=== PATIENT | male | born 1950 | race Caucasian/White ===

== ENCOUNTER 2017-04-22 20:40 | Inpatient (IN) ==
--- NOTE | 2017-04-22 21:44 | Emergency Department Note ---
Disposition Clinical Impression: Petechiae Pneumonia Qualifiers: Pneumonia type: due to unspecified organism Laterality: right Lung location: lower lobe of lung Qualified Code(s): J18.1 - Lobar pneumonia, unspecified organism Altered mental state Qualifiers: Altered mental status type: unspecified Qualified Code(s): R41.82 - Altered mental status, unspecified Disposition: Admitted As Inpatient Condition: Fair Time of Disposition: 23:28 Chest Pain HPI - General Chief Complaint: ED Chest Pain Stated Complaint: chest pain, SoB, anxiety Time Seen by Provider: 04/22/17 20:48 Source: patient, EMS Limitations: no limitations Vital Signs Reviewed: Yes Nursing Notes Reviewed: Yes - History of Present Illness HPI Narrative: Mr Roberts is a 66 yo M transferred from [place] with unknown timeframe chest pain and SOB. Patient has a hx of schizophrenia and is a poor historian. Pt complaint: chest pain Onset (ago): unknown Duration: other (unable to illicit hx from patient) Onset: other (unable to illicit hx from patient) Pain Location: other (unable to illicit hx from patient) Severity: unable Severity scale (1-10): 7 Quality: other (unable to illicit hx from patient) Pain Radiation: other (unable to illicit hx from patient) Improves with: other (unable to illicit hx from patient) Worsens with: other (unable to illicit hx from patient) Context: other (unable to illicit hx from patient) Associated symptoms: Reports: dyspnea Treatments prior to arrival chest pain: other (unable to illicit hx from patient ) - Related Data Home Medications Medication Instructions Recorded Confirmed Acetaminophen [Tylenol] 650 mg PO Q6H PRN 04/22/17 04/22/17 Aspirin Enteric Coated [Aspirin EC] 162 mg PO DAILY 04/22/17 04/22/17 Bethanechol Chloride [Urecholine] 10 mg PO TID 04/22/17 04/22/17 Budesonide/Formoterol 160/4.5 2 puff IH BIDR 04/22/17 04/22/17 [Symbicort 160/4.5] Calcium Citrate 400 mg PO DAILY 04/22/17 04/22/17 Cholecalciferol (D-3) [Vitamin D] 3,000 unit PO DAILY 04/22/17 04/22/17 Cyanocobalamin (Vitamin B-12) 1,000 mcg PO BID 04/22/17 04/22/17 [Vitamin B12] Diltiazem HCl [Diltiazem 24Hr ER] 300 mg PO DAILY 04/22/17 04/22/17 Divalproex (24 HR) [Depakote ER 1,500 mg PO HS 04/22/17 04/22/17 (24 HR)] Docusate [Colace] 100 mg PO BID 04/22/17 04/22/17 Gabapentin [Neurontin] 100 mg PO QAM 04/22/17 04/22/17 Gabapentin [Neurontin] 300 mg PO 04/22/17 04/22/17 Haloperidol Decanoate [Haldol 200 mg IM Q2W 04/22/17 04/22/17 Decanoate 100] Ipratropium/Albuterol Neb [Duoneb] 3 ml IH Q4HR 04/22/17 04/22/17 Losartan Potassium [Cozaar] 100 mg PO DAILY 04/22/17 04/22/17 Magnesium Oxide [Mag-Ox] 400 mg PO TID 04/22/17 04/22/17 Phenol [Chloraseptic] 2 spray MM Q2H PRN 04/22/17 04/22/17 Polyvinyl Alcohol [Artificial 2 drop BOTH EYES TID 04/22/17 04/22/17 Tears] Propranolol [Inderal] 30 mg PO TID 04/22/17 04/22/17 Sennosides [Senna] 8.6 mg PO DAILY 04/22/17 04/22/17 Simethicone [Gas-X] 80 mg PO TIDAC 04/22/17 04/22/17 Spironolactone [Aldactone] 25 mg PO DAILY 04/22/17 04/22/17 Terazosin [Hytrin] 5 mg PO 04/22/17 04/22/17 Tramadol HCl [Ultram] 50 mg PO TID 04/22/17 04/22/17 Trazodone HCl 100 mg PO 04/22/17 04/22/17 Venlafaxine HCl [Effexor Xr] 225 mg PO QAM 04/22/17 04/22/17 cloNIDine HCl [CloNIDine HCl] 0.1 mg PO TID 04/22/17 04/22/17 metFORMIN [Glucophage] 500 mg PO BIDWM 04/22/17 04/22/17 risperiDONE [Risperidone] 4 mg PO BID 04/22/17 04/22/17 Previous Rx's Medication Instructions Recorded Levofloxacin 750 MG/150 ML 750 mg IVPB ONCE #1 bag 04/22/17 [Levaquin Premix 750mg/150 mL] MetroNIDAZOLE 500 MG/100 ML 500 mg IV ONCE #1 bag 04/22/17 [Flagyl Premix 500 MG/100 ML] Allergies Allergy/AdvReac Type Severity Reaction Status Date / Time fluphenazine Allergy See Verified 04/22/17 22:38 Comments piperacillin [From Zosyn] AdvReac See Verified 04/22/17 22:38 Comments tazobactam [From Zosyn] AdvReac See Verified 04/22/17 22:38 Comments All systems ED: reviewed and negative except as stated. Review of Systems: As Per HPI Chest Pain PMH - Past Medical History Medical history: Reports: atrial fibrillation, COPD, diabetes, hyperlipidemia, hypertension Psychiatric history: Reports: anxiety, depression, panic disorder, PTSD, schizophrenia - Social History Smoking Status: Former smoker Physical Exam - General Limitations: no limitations, altered mental status (according to transfer medics patient is at baseline) General appearance: alert, in no apparent distress - Head Head exam: atraumatic, normocephalic, normal inspection - Eye Eye exam: Present: normal appearance, PERRL, EOMI - ENT ENT exam: mucous membranes dry - Neck Neck exam: Present: normal inspection, full ROM, trachea midline - Chest Chest inspection: Present: normal inspection, symmetric chest wall rise - Respiratory Respiratory exam: Present: wheezes, prolonged expiratory phase - Cardiovascular Cardiovascular exam: Present: tachycardia - Extremities Exam Extremities exam: Present: other (petechiae on legs bilaterally) Course Course Narrative: CXR show large consolidation of right lobe. Due to patients living at [place], will start on zosyn and vancomycin, fluids and benadryl. Ordered U/A, and CT head. - Reevaluation(s) Reevaluation #1: CT head returned without acute processes. will discuss patient with hospitalist. Time: 23:09 Reevaluation #2: Patient was discussed with Dr. Marin, he will accept the patient. Vocera'd Dr. Marin letting him know that patient also has plt of 411 and has petechiae in lower extremities. Time: 23:24 Vital Signs Temperature 98.9 F 04/22/17 20:50 Pulse Rate 108 04/22/17 20:50 Respiratory Rate 18 04/22/17 20:50 Blood Pressure 143/104 04/22/17 20:50 O2 Sat by Pulse Oximetry 94 04/22/17 20:50 Temperature 97.6 F 04/23/17 06:57 Pulse Rate 101 04/23/17 06:57 Respiratory Rate 26 04/23/17 11:01 Blood Pressure 176/99 04/23/17 06:57 O2 Sat by Pulse Oximetry 98 04/23/17 11:01 Oxygen Delivery Oxygen Delivery Nasal Cannula Procedures - Lumbar Puncture Time Out Performed: Yes Patient Position: right lateral decubitus Skin Prep: Povidone-Iodine 1% Local Anesthetic: lidocaine 1%, with epi Spinal Needle Gauge: 22G Interspace Used: L4-L5 Fluid Initially Obtained: clear Complications: none Chest Pain - Lab Data Lab results reviewed: Yes I reviewed the patient's lab results. Result diagrams: 04/23/17 04:24 04/23/17 04:24 Lab Results 04/22/17 04/22/17 04/22/17 Range/Units 21:37 21:37 21:37 WBC 30.6 H* (4.3-11.1) K/mcL RBC 3.47 L (4.19-5.50) M/mcL Hgb 10.6 L (12.9-16.9) g/dL Hct 32.9 L (37.5-50.1) % MCV 94.8 (83.0-100.0) fL MCH 30.5 (28.0-33.3) pg MCHC 32.2 (31.6-35.5) g/dL RDW 13.9 (11.5-14.5) % Plt Count 411 H (140-400) K/mcL MPV 9.6 (9.4-12.4) fL Immature Gran % 0.6 (0-4) % Seg Neutrophils % 88.0 % Lymphocytes % 2.5 % Monocytes % 8.6 % Eosinophils % 0.1 % Basophils % 0.2 % Neutrophils # 26.9 H (1.6-8.9) K/mcL Lymphocytes # 0.8 (0.6-4.6) K/mcL Monocytes # 2.6 H (0.0-1.3) K/mcL Eosinophils # 0.0 (0.0-0.6) K/mcL Basophils # 0.1 (0.0-0.2) K/mcL Toxic Granulation Present A (Not Present) Platelet Estimate Increased H (Normal) PT 11.8 (9.4-12.1) Seconds INR 1.1 APTT 28.6 (26.0-36.0) Seconds VBG pH (7.32-7.42) pH Units VBG pCO2 (41-51) mmHg VBG pO2 (25-50) mmHg VBG HCO3 (21-27) mEq/L Sodium 129 L (136-145) mEq/L Potassium 4.7 (3.5-5.1) mEq/L Chloride 93 L (98-107) mEq/L Carbon Dioxide 25 (23-29) mEq/L BUN 28 H (8-23) mg/dL Creatinine 1.04 (0.70-1.30) mg/dL Est GFR ( Amer) > 60 (> 60) Est GFR (Non-Af Amer) > 60 (> 60) BUN/Creatinine Ratio 27 H (6-26) Glucose 171 H (70-105) mg/dL Calculated Osmolality 278 L (280-300) Calcium 9.8 (8.6-10.3) mg/dL Ammonia (16-53) mcmol/L Troponin I 0.03 (< 0.04) ng/mL Urine Color (Yellow) Urine Clarity (Clear) Urine pH (5.0-8.0) pH Units Ur Specific [place] (1.010-1.025) Urine Protein (Neg-Trace) mg/dL Urine Glucose (UA) (Normal) mg/dL Urine Ketones (Negative) mg/dL Urine Blood (Negative) Urine Nitrite (Negative) Urine Bilirubin (Negative) Urine Urobilinogen (Normal) mg/dL Ur Leukocyte Esterase (Negative) Urine Microscopic RBC (0-3) per hpf Urine Microscopic WBC (0-3) per hpf Ur Squamous Epith Cells (None-Few) per lpf Urine Bacteria (None-Few) per hpf Hyaline Casts (None-Few) per lpf Ur Culture Indicated? (NO) Valproic Acid (50-100) mcg/mL 04/22/17 04/22/17 04/22/17 Range/Units 22:11 22:11 22:18 WBC (4.3-11.1) K/mcL RBC (4.19-5.50) M/mcL Hgb (12.9-16.9) g/dL Hct (37.5-50.1) % MCV (83.0-100.0) fL MCH (28.0-33.3) pg MCHC (31.6-35.5) g/dL RDW (11.5-14.5) % Plt Count (140-400) K/mcL MPV (9.4-12.4) fL Immature Gran % (0-4) % Seg Neutrophils % % Lymphocytes % % Monocytes % % Eosinophils % % Basophils % % Neutrophils # (1.6-8.9) K/mcL Lymphocytes # (0.6-4.6) K/mcL Monocytes # (0.0-1.3) K/mcL Eosinophils # (0.0-0.6) K/mcL Basophils # (0.0-0.2) K/mcL Toxic Granulation (Not Present) Platelet Estimate (Normal) PT (9.4-12.1) Seconds INR APTT (26.0-36.0) Seconds VBG pH (7.32-7.42) pH Units VBG pCO2 (41-51) mmHg VBG pO2 (25-50) mmHg VBG HCO3 (21-27) mEq/L Sodium (136-145) mEq/L Potassium (3.5-5.1) mEq/L Chloride (98-107) mEq/L Carbon Dioxide (23-29) mEq/L BUN (8-23) mg/dL Creatinine (0.70-1.30) mg/dL Est GFR ( Amer) (> 60) Est GFR (Non-Af Amer) (> 60) BUN/Creatinine Ratio (6-26) Glucose (70-105) mg/dL Calculated Osmolality (280-300) Calcium (8.6-10.3) mg/dL Ammonia 35 (16-53) mcmol/L Troponin I (< 0.04) ng/mL Urine Color Yellow (Yellow) Urine Clarity Clear (Clear) Urine pH 7.5 (5.0-8.0) pH Units Ur Specific [place] 1.022 (1.010-1.025) Urine Protein 30 H (Neg-Trace) mg/dL Urine Glucose (UA) Normal (Normal) mg/dL Urine Ketones Trace H (Negative) mg/dL Urine Blood Negative (Negative) Urine Nitrite Negative (Negative) Urine Bilirubin Negative (Negative) Urine Urobilinogen Normal (Normal) mg/dL Ur Leukocyte Esterase Negative (Negative) Urine Microscopic RBC 0-3 (0-3) per hpf Urine Microscopic WBC 0-3 (0-3) per hpf Ur Squamous Epith Cells Moderate H (None-Few) per lpf Urine Bacteria None Seen (None-Few) per hpf Hyaline Casts None Seen (None-Few) per lpf Ur Culture Indicated? NO (NO) Valproic Acid 62 (50-100) mcg/mL 04/22/17 Range/Units 22:29 WBC (4.3-11.1) K/mcL RBC (4.19-5.50) M/mcL Hgb (12.9-16.9) g/dL Hct (37.5-50.1) % MCV (83.0-100.0) fL MCH (28.0-33.3) pg MCHC (31.6-35.5) g/dL RDW (11.5-14.5) % Plt Count (140-400) K/mcL MPV (9.4-12.4) fL Immature Gran % (0-4) % Seg Neutrophils % % Lymphocytes % % Monocytes % % Eosinophils % % Basophils % % Neutrophils # (1.6-8.9) K/mcL Lymphocytes # (0.6-4.6) K/mcL Monocytes # (0.0-1.3) K/mcL Eosinophils # (0.0-0.6) K/mcL Basophils # (0.0-0.2) K/mcL Toxic Granulation (Not Present) Platelet Estimate (Normal) PT (9.4-12.1) Seconds INR APTT (26.0-36.0) Seconds VBG pH 7.38 (7.32-7.42) pH Units VBG pCO2 44 (41-51) mmHg VBG pO2 44 (25-50) mmHg VBG HCO3 26 (21-27) mEq/L Sodium (136-145) mEq/L Potassium (3.5-5.1) mEq/L Chloride (98-107) mEq/L Carbon Dioxide (23-29) mEq/L BUN (8-23) mg/dL Creatinine (0.70-1.30) mg/dL Est GFR ( Amer) (> 60) Est GFR (Non-Af Amer) (> 60) BUN/Creatinine Ratio (6-26) Glucose (70-105) mg/dL Calculated Osmolality (280-300) Calcium (8.6-10.3) mg/dL Ammonia (16-53) mcmol/L Troponin I (< 0.04) ng/mL Urine Color (Yellow) Urine Clarity (Clear) Urine pH (5.0-8.0) pH Units Ur Specific [place] (1.010-1.025) Urine Protein (Neg-Trace) mg/dL Urine Glucose (UA) (Normal) mg/dL Urine Ketones (Negative) mg/dL Urine Blood (Negative) Urine Nitrite (Negative) Urine Bilirubin (Negative) Urine Urobilinogen (Normal) mg/dL Ur Leukocyte Esterase (Negative) Urine Microscopic RBC (0-3) per hpf Urine Microscopic WBC (0-3) per hpf Ur Squamous Epith Cells (None-Few) per lpf Urine Bacteria (None-Few) per hpf Hyaline Casts (None-Few) per lpf Ur Culture Indicated? (NO) Valproic Acid (50-100) mcg/mL - Radiology Data Radiology results reviewed: Yes I reviewed the patient's radiology results. Chest X-Ray 04/22/17 21:04 IMPRESSION: 1. Consolidative changes throughout the right lower lobe most compatible with pneumonia. Recommend follow-up to resolution. D/ / Kermit Ba MD / Kermit Ba MD Interpreting Provider: Kermit Ba MD Head CT 04/22/17 21:48 IMPRESSION: Small vessel chronic ischemic changes without acute hemorrhage or definite evidence for acute ischemia. D/ / Anthony Galvan MD / Anthony Galvan MD Interpreting Provider: Anthony Galvan MD - EKG Data EKG attestation: Yes I reviewed and interpreted this EKG. EKG shows normal: sinus rhythm Rate: tachycardia Rhythm: NSR [place]/QRS: normal When compared to previous EKG there are: previous EKG unavailable Interpretation: normal EKG, other (pattern consistent with pulmonary disease) Heart Score - Score History: Slightly Suspicious EKG: Normal Age: 45-65 Risk Factors: Equal/Greater than 3 risk factor or history of atherosclerotic disease Troponin: Less than normal limit HEART Score Total: 3 Attestation Statement - Attestation Attestation: I examined this patient and my medical decision-making was reviewed with the Resident Physician. I agree with the documented findings, disposition and treatment plan as described except to the extent set forth below. 66-year-old male sent to the emergency room from the [facility] due to altered mental status. He was residing in the inpatient psychiatric [place] when he developed a petechial rash, altered mental status and complaint of chest pain. One report also indicated that he had fever but this is not documented. Uncertain as to any recent medication changes. Patient is unable to provide accurate history or history of present illness. No known trauma. Patient is agitated and moving about the bed. Does not follow commands. Unable to consistently answer questions. Afebrile. Mild tachycardia. Oropharynx clear mucous membranes membranes are very dry. Neck is supple. Chest with diminished breath sounds both bases. No wheezes or focal consolidation appreciated. Cardiac exam tachycardic, regular. Abdomen soft, nondistended nontender. Extremities warm and dry. He does have a petechial rash on both legs and a few petechiae on the anterior abdomen. No CVA tenderness. IV was started and labs were obtained along blood cultures. Chest x-ray reveals a right lower lobe infiltrate. He has significant leukocytosis with white count of 30,000 with toxic granulations. Due to his presenting or mental status and not knowing his baseline as well as the petechial rash she underwent lumbar puncture to rule out meningitis. Primarily the CSF appeared clear. He was still given broad-spectrum antibiotics in the form of vancomycin, Flagyl and Levaquin. He is admitted to hospitalist service. The high probability of a clinically significant, sudden or life threatening deterioration of the [DESIGN SUPERVISOR, renovascular, pulmonary] system(s) required my full and direct attention, intervention and personal management. The aggregate critical care time was [40] minutes. This time is in addition to time spent performing reported procedures but includes the following: [x] Data Review and interpretation [x] Patient assessment and monitoring of vital signs [x] Documentation [x] Medication orders and management
[2017-04-22] MEDS ORDERED: Piperacillin/Tazobactam 3.375 GM in 0.9 % Sodium Chloride Mini Bag 100 ML IVPB ONE (21:50)
[2017-04-22] MEDS ORDERED: 0.9 % Sodium Chloride 1,000 ML IVC ONE (21:51)
[2017-04-22 22:02] LABS: Basophils # 0.1 K/mcL (0.0-0.2); Basophils % 0.2 %; Eosinophils % 0.1 %; Hematocrit 32.9 % (37.5-50.1); Hemoglobin 10.6 g/dL (12.9-16.9); INR 1.1; Immature Granulocytes % 0.6 % (0-4); Lymphocytes # 0.8 K/mcL (0.6-4.6); Lymphocytes % 2.5 %; Mean Corpuscular HGB Conc 32.2 g/dL (31.6-35.5); Mean Corpuscular Hemoglobin 30.5 pg (28.0-33.3); Mean Corpuscular Volume 94.8 fL (83.0-100.0); Mean Platelet Volume 9.6 fL (9.4-12.4); Monocytes # 2.6 K/mcL (0.0-1.3); Monocytes % 8.6 %; Neutrophils # 26.9 K/mcL (1.6-8.9); Platelet Count 411 K/mcL (140-400); Prothrombin Time 11.8 Seconds (9.4-12.1); Red Blood Count 3.47 M/mcL (4.19-5.50); Red Cell Distribution Width 13.9 % (11.5-14.5)
[2017-04-22 22:04] LABS: Activated Partial Thrombo Time 28.6 Seconds (26.0-36.0)
[2017-04-22] MEDS: *HR* LORazepam 2 MG/ML VIAL IVP ONE ×2 (22:10→22:17)
[2017-04-22 22:16] LABS: BUN/Creatinine Ratio 27 (6-26); Blood Urea Nitrogen 28 mg/dL (8-23); Calcium 9.8 mg/dL (8.6-10.3); Carbon Dioxide 25 mEq/L (23-29); Chloride 93 mEq/L (98-107); Glucose 171 mg/dL (70-105); Osmolality,Calculated 278 (280-300); Potassium 4.7 mEq/L (3.5-5.1); Sodium 129 mEq/L (136-145); Troponin I 0.03 ng/mL (< 0.04); eGFR For African Americans > 60 (> 60); eGFR For Non-African Americans > 60 (> 60)
[2017-04-22 22:17] LABS: Platelet Estimate Increased (Normal); Toxic Granulation Present (Not Present)
[2017-04-22 22:27] LABS: Bilirubin,Urine Negative (Negative); Blood,Urine Negative (Negative); Clarity,Urine Clear (Clear); Color,Urine Yellow (Yellow); Glucose,Urine (UA) Normal (Normal); Ketones,Urine Trace mg/dL (Negative); Leukocyte Esterase,Urine Negative (Negative); Nitrite,Urine Negative (Negative); PH,Urine 7.5 pH Units (5.0-8.0); Protein,Urine 30 mg/dL (Neg-Trace); Specific Gravity,Urine 1.022 (1.010-1.025); Urobilinogen,Urine Normal (Normal)
[2017-04-22 22:30] LABS: Bacteria,Urine None Seen per hpf (None-Few); Hyaline Casts,Urine None Seen per lpf (None-Few); RBC,Urine 0-3 per hpf (0-3); Squamous Epithelial Cell,Urine Moderate per lpf (None-Few); WBC,Urine 0-3 per hpf (0-3)
[2017-04-22 22:37] LABS: VBG HCO3 26 mEq/L (21-27); VBG PCO2 44 mmHg (41-51); VBG PH 7.38 pH Units (7.32-7.42); VBG PO2 44 mmHg (25-50)
[2017-04-22] MEDS ORDERED: MetroNIDAZOLE 500 MG/100 ML 500 MG/100 ML BAG IVPB ONE (22:42)
[2017-04-22] MEDS ORDERED: Levofloxacin 750 MG/150 ML 750 MG/150 ML BAG IVPB ONE (22:42)
[2017-04-22] MEDS ORDERED: *HR* LORazepam 2 MG/ML VIAL IVP ONE (23:35)
[2017-04-22] MEDS ORDERED: 0.9 % Sodium Chloride 1,000 ML ONE (23:44)
[2017-04-23] MEDS ORDERED: cefTRIAXone 2,000 MG in Water for inj. (sterile) 20 ML 20 ML IVP ONE (00:10)
[2017-04-23] MEDS: 0.9 % Sodium Chloride 1,000 ML IVC SCH ×3 (00:20→07:29)
[2017-04-23] MEDS ORDERED: Naloxone 0.4 MG/ML INJ IVP PRN (00:25)
[2017-04-23 00:28] LABS: Red Blood Cell,CSF < 0.002 M/mcL
[2017-04-23 00:29] LABS: Appearance,CSF Clear (Clear)
[2017-04-23] MEDS ORDERED: 0.9 % Sodium Chloride 1,000 ML IVC SCH (00:30)
[2017-04-23] MEDS ORDERED: Dextrose Gel 15 GM/37.5 ML TUBE PO PRN ×2 (00:32)
[2017-04-23] MEDS ORDERED: D5% in Water 1,000 ML IVC PRN (00:32)
[2017-04-23] MEDS ORDERED: *HR* Dextrose 50 % in Water (Syg) 50 ML SYRINGE IVP PRN (00:32)
[2017-04-23] MEDS ORDERED: Albuterol 2.5 MG/3 ML NEBULIZER IH PRN (00:38)
[2017-04-23 00:54] LABS: Glucose,CSF 90 mg/dL (40-70); Total Protein,CSF 27 mg/dL (15-45)
[2017-04-23] MEDS ORDERED: Vancomycin (wt based) 1,000 MG VIAL IVPB SCH (01:00)
--- NOTE | 2017-04-23 01:19 | Internal Med History&Physical ---
Date of Encounter: 04/23/17 Time of Encounter: 00:10 Assessment and Plan (1) Severe sepsis Current visit: Yes Status: Acute 1. Will continue IVF and broad spectrum IV antibiotics to cover meningitis and suspected aspiration pneumonia. 2. CSF studies to be reviewed once available. 3. Continue antibiotics until culture results are available and clinical situation improves. 4. Monitor hemodynamics and adjust medications/fluids accordingly. (2) Pneumonia Current visit: Yes Status: Acute 1. Likely the source for sepsis. 2. Given right lower lobe infiltrate and underlying metal state, there is concern this is aspiration. 3. Will add IVF Flagyl to antibiotics. 4. Oxygen and aerosols as needed. Qualifiers: Pneumonia type: due to unspecified organism Laterality: right Lung location: lower lobe of lung Qualified Code(s): J18.1 - Lobar pneumonia, unspecified organism (3) Encephalopathy acute Current visit: Yes Status: Acute 1. Unable to determine baseline mental status presently. 2. Will ask day team to discuss with family and/or [facility] nursing staff to provide details as to his baseline. 3. Monitor clinically; patient currently maintaining his airway. (4) Type 2 diabetes mellitus Current visit: Yes Status: Chronic 1. Will hold oral meds and place on SSI. 2. Monitor glucose and adjust insulin coverage as needed. Qualifiers: Diabetes mellitus complication status: without complication Diabetes mellitus senior living insulin use: without terminal operator use Qualified Code(s): E11.9 - Type 2 diabetes mellitus without complications (5) DVT prophylaxis Current visit: Yes Status: Acute 1. Heparin SQ. Internal Medicine - H&P: HPI Chief complaint: SOB; reported chest pain Admitted From: Emergency Dept Plans for Post Hospital Care: Transfer Psych Facility History of present illness: Mr. Roberts is a 66 year old male who was transferred to our ER from the [facility] inpatient psychiatry unit. Patient was noted to have an abnormal rash on his legs and reported difficulty breathing and chest pain. He was therefore transferred to the ER here [facility] where evaluation was initiated. Unfortunately, no medical records were transferred here from the [place] , and patient was not able to provide any history whatsoever. Routine labs and x-rays were performed which revealed patient to have a profound leukocytosis. Additionally, x-ray confirmed suspicion for pneumonia. Blood cultures were drawn and patient had antibiotics infused. He was then admitted to the hospitalist service. Additionally, we were then later notified that patient had significant petechial rash on his legs. I went to the ER to assess patient and examine him. As I walked in the ER, ther resident and attending were preparing to perform a lumbar puncture given his severe sepsis and petechial rash. Patient was nonverbal and did not provide any history whatsoever. ER attending and resident confirmed this was his presentation and that they were unable to provide any history whatsoever as well. No history could be obtained except what was obtained from third-green party reports via phone conversation the ER attending had with the inpatient unit at the [place]. I was present while they performed a lumbar puncture. The initial impression was the CSF was clear, but formal CSF analysis is pending. Past Med Surg Social Fam HX - Past Medical History Source: unable to obtain, other (very limited records form [place] -- essentially medication list) Medical history: atrial fibrillation, COPD, diabetes, hyperlipidemia, hypertension Psychiatric history: anxiety, depression, panic disorder, PTSD, schizophrenia - Past Surgical History Surgical History: other (unable to obtain surgical history) - Social History Smoking Status: Former smoker Alcohol use: unknown Drug use: unknown Current living situation: ECF - Family History Mother History Unknown: Yes Father History Unknown: Yes Internal Medicine - H&P: Meds Acetaminophen [Tylenol] 650 mg PO Q6H PRN 04/22/17 [History] Aspirin Enteric Coated [Aspirin EC] 162 mg PO DAILY 04/22/17 [History] Bethanechol Chloride [Urecholine] 10 mg PO TID 04/22/17 [History] Budesonide/Formoterol 160/4.5 [Symbicort 160/4.5] 2 puff IH BIDR 04/22/17 [ History] Calcium Citrate 400 mg PO DAILY 04/22/17 [History] Cholecalciferol (D-3) [Vitamin D] 3,000 unit PO DAILY 04/22/17 [History] Cyanocobalamin (Vitamin B-12) [Vitamin B12] 1,000 mcg PO BID 04/22/17 [History] Diltiazem HCl [Diltiazem 24Hr ER] 300 mg PO DAILY 04/22/17 [History] Divalproex (24 HR) [Depakote ER (24 HR)] 1,500 mg PO HS 04/22/17 [History] Docusate [Colace] 100 mg PO BID 04/22/17 [History] Gabapentin [Neurontin] 100 mg PO QAM 04/22/17 [History] Gabapentin [Neurontin] 300 mg PO HS 04/22/17 [History] Haloperidol Decanoate [Haldol Decanoate 100] 200 mg IM Q2W 04/22/17 [History] Ipratropium/Albuterol Neb [Duoneb] 3 ml IH Q4HR 04/22/17 [History] Levofloxacin 750 MG/150 ML [Levaquin Premix 750mg/150 mL] 750 mg IVPB ONCE #1 bag 04/22/17 [Rx] Losartan Potassium [Cozaar] 100 mg PO DAILY 04/22/17 [History] Magnesium Oxide [Mag-Ox] 400 mg PO TID 04/22/17 [History] MetroNIDAZOLE 500 MG/100 ML [Flagyl Premix 500 MG/100 ML] 500 mg IV ONCE #1 bag 04/22/17 [Rx] Phenol [Chloraseptic] 2 spray MM Q2H PRN 04/22/17 [History] Polyvinyl Alcohol [Artificial Tears] 2 drop BOTH EYES TID 04/22/17 [History] Propranolol [Inderal] 30 mg PO TID 04/22/17 [History] Sennosides [Senna] 8.6 mg PO DAILY 04/22/17 [History] Simethicone [Gas-X] 80 mg PO TIDAC 04/22/17 [History] Spironolactone [Aldactone] 25 mg PO DAILY 04/22/17 [History] Terazosin [Hytrin] 5 mg PO HS 04/22/17 [History] Tramadol HCl [Ultram] 50 mg PO TID 04/22/17 [History] Trazodone HCl 100 mg PO HS 04/22/17 [History] Venlafaxine HCl [Effexor Xr] 225 mg PO QAM 04/22/17 [History] cloNIDine HCl [CloNIDine HCl] 0.1 mg PO TID 04/22/17 [History] metFORMIN [Glucophage] 500 mg PO BIDWM 04/22/17 [History] risperiDONE [Risperidone] 4 mg PO BID 04/22/17 [History] 3 Allergy/AdvReac Type Severity Reaction Status Date / Time fluphenazine Allergy See Verified 04/22/17 22:38 Comments piperacillin [From Zosyn] AdvReac See Verified 04/22/17 22:38 Comments tazobactam [From Zosyn] AdvReac See Verified 04/22/17 22:38 Comments ROS unobtainable: due to mental status - Constitutional Vitals: Temp Pulse Resp BP Pulse Ox 99.7 F H 87 20 154/83 95 04/23/17 00:47 04/23/17 00:15 04/23/17 00:47 04/23/17 00:47 04/23/17 00:15 General appearance: Present: cachectic, A&O X 0, mild distress. Absent: cooperative - Head Head exam: Present: atraumatic, normal inspection - Eye Eye exam: Present: EOMI, PERRL. Absent: scleral icterus Pupils: Present: normal accommodation - ENT ENT exam: Present: mucous membranes dry, normal exam, normal external ear exam - Neck Neck exam general surgery: Present: full ROM, supple. Absent: lymphadenopathy, tenderness, nuchal rigidity, thyromegaly - Respiratory Respiratory exam: Present: decreased breath sounds (mostly in right base), rales (faint right basilar crackles), respiratory distress (mild). Absent: chest wall tenderness, rhonchi, wheezes - Cardiovascular Cardiovascular exam: Present: distant heart sounds, RRR, +S1, +S2. Absent: diastolic murmur, JVD, systolic murmur - GI/Abdominal GI/Abdominal exam: Present: normal bowel sounds, soft. Absent: hepatomegaly, mass, splenomegaly, tenderness - Extremities Exam Extremities exam: Present: normal capillary refill, warm, radial pulses palpable and symmetrical. Absent: calf tenderness, joint swelling, pedal edema , tenderness - Back Exam Back exam: Absent: CVA tenderness (L), CVA tenderness (R) - Neurological Exam Neurological exam: Present: altered, no focal deficits Additional comments: moves all four extremities - Psychiatric Psychiatric exam: Present: agitated - Skin Skin exam: Present: dry, petechiae (diffuse petechial rash on legs), warm Internal Med - H&P Results - Labs CBC & Chem 7: 04/22/17 21:37 04/22/17 21:37 - EKG Data -: EKG Interpreted by Myself EKG shows normal: sinus rhythm Rate: tachycardia - EKG Data Prior EKG available for review: no EKG comments: 04/23/17 01:24 Sinus tachycardia; no acute ST-T changes - Diagnostic Studies Chest x-ray Status: image reviewed by me (RLL infiltrate)
[2017-04-23] MEDS: Ipratropium/Albuterol Neb 3 ML IH SCH ×6 (04:21→23:35)
[2017-04-23 04:45] LABS: Hematocrit 29.8 % (37.5-50.1); Hemoglobin 9.5 g/dL (12.9-16.9); INR 1.2; Mean Corpuscular HGB Conc 31.9 g/dL (31.6-35.5); Mean Corpuscular Hemoglobin 30.3 pg (28.0-33.3); Mean Corpuscular Volume 94.9 fL (83.0-100.0); Mean Platelet Volume 9.6 fL (9.4-12.4); Platelet Count 346 K/mcL (140-400); Prothrombin Time 12.6 Seconds (9.4-12.1); Red Blood Count 3.14 M/mcL (4.19-5.50); Red Cell Distribution Width 13.9 % (11.5-14.5)
[2017-04-23 04:48] LABS: Activated Partial Thrombo Time 27.4 Seconds (26.0-36.0)
[2017-04-23 05:06] LABS: Alanine Aminotransferase 9 Units/L (7-52); Albumin 2.8 g/dL (3.5-5.7); Albumin/Globulin Ratio 0.9 (1.1-2.2); Alkaline Phosphatase 35 Units/L (34-104); Aspartate Amino Transferase 10 Units/L (13-39); BUN/Creatinine Ratio 23 (6-26); Bilirubin,Total 0.2 mg/dL (0.3-1.0); Blood Urea Nitrogen 20 mg/dL (8-23); Calcium 8.7 mg/dL (8.6-10.3); Carbon Dioxide 25 mEq/L (23-29); Chloride 102 mEq/L (98-107); Globulin 3.1 g/dL (2.4-3.5); Glucose 102 mg/dL (70-105); Magnesium 1.5 mg/dL (1.6-2.6); Osmolality,Calculated 279 (280-300); Potassium 4.9 mEq/L (3.5-5.1); Sodium 133 mEq/L (136-145); Total Protein 5.9 g/dL (6.4-8.9); eGFR For African Americans > 60 (> 60); eGFR For Non-African Americans > 60 (> 60)
[2017-04-23] MEDS ORDERED: Magnesium Sulfate 2 GM in D5% in Water 100 ML IVPB ONE (05:36)
[2017-04-23 05:49] LABS: Lymphocytes # 1.4 K/mcL (0.6-4.6); Monocytes # 0.5 K/mcL (0.0-1.3); Neutrophils # 21.6 K/mcL (1.6-8.9); Platelet Estimate Normal (Normal); Toxic Granulation Present (Not Present)
[2017-04-23] MEDS: *HR* Metoprolol 5 MG/5 ML VIAL IVP PRN (07:20)
[2017-04-23] MEDS: *HR* Heparin 5,000 UNIT/ML VIAL SQ SCH ×2 (07:29→18:00)
[2017-04-23] MEDS: Insulin LISPRO 300 UNITS/3 ML VIAL SQ SCH ×3 (07:30→17:59)
[2017-04-23] MEDS ORDERED: *HR* Metoprolol 5 MG/5 ML VIAL IVP ONE (07:44)
[2017-04-23] MEDS: MetroNIDAZOLE 500 MG/100 ML 500 MG/100 ML BAG IVPB SCH ×2 (07:53→16:08)
[2017-04-23 08:26] LABS: ABG Base Excess 0 mEq/L (-2 to 3); ABG HCO3 24 mEq/L (21-27); ABG Oxygen Saturation 95 % (95-98); ABG PCO2 36 mmHg (35-45); ABG PH 7.43 pH Units (7.32-7.45); ABG PO2 72 mmHg (85-104); ABG TCO2 25 mEq/L (20-26)
[2017-04-23] MEDS: Budesonide/Formoterol 160/4.5 MDI IH SCH ×2 (08:28→20:08)
[2017-04-23] MEDS ORDERED: cefTRIAXone 2,000 MG in Water for inj. (sterile) 20 ML 20 ML IVP SCH (12:00)
[2017-04-23] MEDS: Artificial Tears SOLN 15 ML BOTTLE BOTH EYES SCH ×3 (12:05→22:23)
[2017-04-23] MEDS: Gabapentin 100 MG CAPSULE PO SCH (12:05)
[2017-04-23] MEDS: Aspirin Enteric Coated 81 MG Tablet PO SCH (12:05)
[2017-04-23] MEDS: Diltiazem CD (24hr) 300 MG CAPSULE PO SCH (12:05)
[2017-04-23] MEDS: Magnesium Oxide 400 MG TABLET PO SCH ×3 (12:05→20:34)
[2017-04-23] MEDS: Sennosides 8.6 MG TABLET PO SCH (12:05)
[2017-04-23] MEDS: *HR* LORazepam 2 MG/ML VIAL IVP PRN ×2 (12:28→19:04)
--- NOTE | 2017-04-23 16:45 | Event Note ---
<Dany Siddiqui - Last Filed: 04/23/17 16:37> Date of Encounter: 04/23/17 Time of Encounter: 16:37 Patient is a 66-year-old male with a past medical history atrial fibrillation, COPD, diabetes, hyperlipidemia, hypertension, depression, panic disorder, PTSD, and schizophrenia admitted from the emergency department for pneumonia, altered mental status, and petechiae. According to documentation from patients chart he originally was sent to the emergency department from the [facility] for the complaint of shortness of breath and chest pain. In the emergency room and the patient had a leukocytosis of 30.6 with elevated neutrophils at 26.9. Coags were normal and BMP was unremarkable. Troponin and pneumonia were negative. Urine was negative and CSF fluid was negative VS: 97.6F, 101, 22, 22, 176/99, 92% 3LNC PE: Exam is limited due to patient movement. Patient appears to be in mild distress, hears my voice if its raised, states he uses hearing aids. Lung exam is limited due to tachypnea however rales appreciated in right lower lung. Heart rate is tachycardic. Diffuse petechial rash over lower extremities consistent with benign chronic vasculitis. No edema. Skin is pale and dry. Labs: CSF labs negative clear, <0.002 RBC, < 3 total nucleated cells, 90 glucose, 27 protein Urine negative Severe sepsis WBC improved from 30 to 23.5 Source most likely RLL aspiration pneumonia - CXR RLL pneumonia CSF and urine negative for signs of infection Received 4L NS total Plan: Stop fluids for now Continue Flagyl 500mg Q8H , vancomycin 1g Daily, stop Ceftriaxone 2mg Q12H. We will add cefepime for pseudomonas coverage Blood CSF cultures pending, meningitis unlikely Pneumonia LLL as seen on CXR, most likely aspiration Speech therapy ordered for swallow evaluation - aspiration not observed. Advanced soft textures and thin liquids are recommended Oxygen and aerosols PRN Plan: ABG normal Continue antibiotics as discussed above Tachycardia Metoprolol 5mg Q6H PRN HR >130 Most likely due to help home medications Plan: Discussed with pharmacy. Medications reconciled, will help with heart rate and agitation. Encephalopathy acute Friend of patient visited today and states patient is at baseline Lorazepam 0.5mg Q8H PRN for agitation Head CT in ED was negative Restarting home medications today Type 2 diabetes mellitus SSI Corrective Low Dose DVT prophylaxis Heparin SQ Q12H <Eric Delvalle - Last Filed: 04/23/17 18:47> Date of Encounter: 04/23/17
[2017-04-23] MEDS ORDERED: Cefepime HCl 2,000 MG in Water for inj. (sterile) 20 ML IVP SCH (18:00)
[2017-04-23] MEDS: risperiDONE 1 MG TABLET PO SCH (20:33)
[2017-04-23] MEDS: Gabapentin 300 MG CAPSULE PO SCH (20:34)
[2017-04-23] MEDS: cloNIDine HCl 0.1 MG TABLET PO SCH (20:34)
[2017-04-23] MEDS: traZODone 50 MG TABLET PO SCH (20:34)
[2017-04-23] MEDS: Divalproex (24 HR) 500 MG TABLET PO SCH (20:34)
[2017-04-23] MEDS: Acetaminophen 325 MG TABLET PO PRN (22:32)
[2017-04-24] MEDS: Insulin LISPRO 300 UNITS/3 ML VIAL SQ SCH ×3 (00:09→12:09)
[2017-04-24] MEDS: MetroNIDAZOLE 500 MG/100 ML 500 MG/100 ML BAG IVPB SCH ×4 (00:14→23:56)
[2017-04-24] MEDS: Cefepime HCl 2,000 MG in Water for inj. (sterile) 20 ML 20 ML IVP SCH ×3 (01:26→17:04)
[2017-04-24 01:51] LABS: Basophils % 0.2 %; Hematocrit 24.1 % (37.5-50.1); Immature Granulocytes % 0.6 % (0-4); Lymphocytes % 1.8 %; Mean Corpuscular Volume 92.3 fL (83.0-100.0); Mean Platelet Volume 9.7 fL (9.4-12.4); Red Blood Count 2.61 M/mcL (4.19-5.50); Red Cell Distribution Width 13.9 % (11.5-14.5)
[2017-04-24 01:52] LABS: Basophils # 0.1 K/mcL (0.0-0.2); Lymphocytes # 0.5 K/mcL (0.6-4.6); Mean Corpuscular HGB Conc 33.2 g/dL (31.6-35.5); Mean Corpuscular Hemoglobin 30.7 pg (28.0-33.3); Monocytes # 1.3 K/mcL (0.0-1.3); Monocytes % 5.1 %; Platelet Count 270 K/mcL (140-400); Segmented Neutrophils % 92.3 %
[2017-04-24 02:07] LABS: BUN/Creatinine Ratio 20 (6-26); Blood Urea Nitrogen 18 mg/dL (8-23); Carbon Dioxide 23 mEq/L (23-29); Chloride 102 mEq/L (98-107); Glucose 97 mg/dL (70-105); Magnesium 1.7 mg/dL (1.6-2.6); Osmolality,Calculated 276 (280-300); Sodium 132 mEq/L (136-145); eGFR For African Americans > 60 (> 60); eGFR For Non-African Americans > 60 (> 60)
[2017-04-24 03:31] LABS: Platelet Estimate Normal (Normal); Toxic Granulation Present (Not Present)
[2017-04-24] MEDS: Ipratropium/Albuterol Neb 3 ML IH SCH ×5 (03:36→20:31)
[2017-04-24] MEDS: *HR* Heparin 5,000 UNIT/ML VIAL SQ SCH ×2 (05:49→17:05)
[2017-04-24] MEDS: Budesonide/Formoterol 160/4.5 MDI IH SCH ×2 (07:37→20:32)
[2017-04-24] MEDS: Gabapentin 100 MG CAPSULE PO SCH (07:59)
[2017-04-24] MEDS: Venlafaxine XR (24 HR) 75 MG CAP.ER.24H PO SCH (08:00)
[2017-04-24] MEDS: Magnesium Oxide 400 MG TABLET PO SCH ×3 (08:00→21:44)
[2017-04-24] MEDS: cloNIDine HCl 0.1 MG TABLET PO SCH ×3 (08:00→21:44)
[2017-04-24] MEDS: Aspirin Enteric Coated 81 MG Tablet PO SCH (08:01)
[2017-04-24] MEDS: risperiDONE 1 MG TABLET PO SCH ×2 (08:01→21:44)
[2017-04-24] MEDS: Sennosides 8.6 MG TABLET PO SCH (08:01)
[2017-04-24] MEDS: Diltiazem CD (24hr) 300 MG CAPSULE PO SCH (08:01)
[2017-04-24] MEDS: Artificial Tears SOLN 15 ML BOTTLE BOTH EYES SCH ×3 (09:05→21:45)
[2017-04-24] MEDS: *HR* LORazepam 2 MG/ML VIAL IVP PRN (15:01)
[2017-04-24] MEDS ORDERED: Furosemide 40 MG/4 ML VIAL IVP ONE (15:04)
[2017-04-24 15:16] LABS: ABG Base Excess -2 mEq/L (-2 to 3); ABG HCO3 22 mEq/L (21-27); ABG Oxygen Saturation 94 % (95-98); ABG PCO2 30 mmHg (35-45); ABG PH 7.46 pH Units (7.32-7.45); ABG PO2 66 mmHg (85-104); ABG TCO2 23 mEq/L (20-26)
--- NOTE | 2017-04-24 16:22 | Electrocardiograph Report ---
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
--- NOTE | 2017-04-24 16:23 | Internal Med Progress Note ---
<Dany Siddiqui - Last Filed: 04/24/17 18:10> Date of Encounter: 04/24/17 Time of Encounter: 16:21 - Assessment and plan (1) Severe sepsis Current Visit: Yes Status: Acute Assessment and plan: Patient is currently on day 2 of Flagyl, vancomycin, and cefepime. Blood cultures, CSF cultures, an influenza swab are all negative. She is and aerosols when necessary. Patient is scheduled breathing treatments. WBC: 30. -> 23.5 -> 24.9 Plan: Repeat chest x-ray today shows worsening pneumonia versus pulmonary edema. Patient received 40 mg IV Lasix. Continue current antibiotic regimen. Continue to monitor white count. 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 He states that he has lost his glasses and hearing aids. I attempted to consult with [place] today and was unsuccessful. Plan: - Patient continues to have intermittent agitation has lorazepam 0.5 mg Q8H PRN for agitation (5) DVT prophylaxis Current Visit: Yes Status: Acute Assessment and plan: Heparin SQ Q12H - Subjective Interval history: Patient is a 66-year-old male with a past medical history atrial fibrillation, COPD, diabetes, hyperlipidemia, hypertension, depression, panic disorder, PTSD, and schizophrenia admitted from the emergency department for pneumonia, altered mental status, and petechiae. According to documentation from patients chart he originally was sent to the emergency department from the [facility] for the complaint of shortness of breath and chest pain. Today the patient's agitation is under control however this morning the patient was somnolent and has become more active throughout the day. He does appear to be having increased work of breathing and a repeat chest x-ray showed possible pulmonary edema versus worsening pneumonia. IV Lasix was ordered. - Constitutional Vitals: Temp Pulse Resp BP Pulse Ox 99.1 F 79 18 119/86 93 04/24/17 16:02 04/24/17 16:02 04/24/17 16:12 04/24/17 16:02 04/24/17 16:12 General appearance: Present: cachectic, A&O X 0, mild distress. Absent: cooperative Exam: Patient is somnolent this morning. He is reactive if I shout which is secondary to his hearing loss which is chronic. The patient is to Make any does have abdominal breathing. He is saturating in the 90s on 4 L. His vital signs are otherwise stable at this time. - Head Head exam: Present: atraumatic, normal inspection, normocephalic - Eye Eye exam: Present: normal appearance, PERRL - Neck Neck exam general surgery: Present: normal inspection - Respiratory Respiratory exam: Present: rales (Mostly in the right base with faint basilar crackles. Patient is mild to moderate respiratory distress.) - Cardiovascular Cardiovascular exam: Present: RRR, +S1, +S2 - GI/Abdominal GI/Abdominal exam: Present: soft, no peritoneal signs. Absent: tenderness - Extremities Exam Extremities exam: Present: normal inspection, warm. Absent: pedal edema, tenderness - Back Exam Back exam: Present: normal inspection - Neurological Exam Neurological exam: Present: alert, no focal deficits - Psychiatric Psychiatric exam: Present: normal affect, normal mood - Skin Skin exam: Present: intact, normal color, warm. Absent: rash Internal Medicine: Result - Labs CBC & Chem 7: 04/24/17 01:31 04/24/17 01:31 Labs: Short CBC 04/24/17 Range/Units 01:31 WBC 24.9 H (4.3-11.1) K/mcL Hgb 8.0 L D (12.9-16.9) g/dL Hct 24.1 L (37.5-50.1) % Plt Count 270 (140-400) K/mcL Neutrophils # 23.0 H (1.6-8.9) K/mcL BMP 04/24/17 01:31 Sodium 132 L Potassium 4.0 Chloride 102 Carbon Dioxide 23 BUN 18 Creatinine 0.92 Glucose 97 Calcium 8.0 L - ABG Interpretation ABG results: ABG ABG pH 7.46 pH Units (7.32-7.45) H 04/24/17 15:12 ABG pCO2 30 mmHg (35-45) L 04/24/17 15:12 ABG pO2 66 mmHg (85-104) L 04/24/17 15:12 ABG O2 Saturation 94 % (95-98) L 04/24/17 15:12 PT/INR, D-dimer PT 12.6 Seconds (9.4-12.1) H 04/23/17 04:24 - Impressions Impressions Chest X-Ray 04/24/17 13:13 IMPRESSION: Worsening airspace disease at the right lung base with new left basilar opacities. Findings could reflect worsening pneumonia, aspiration or possibly asymmetric edema. Increased retrocardiac opacities may reflect atelectasis although developing airspace disease is possible. D/ / Glen Mason / Glen Mason Interpreting Provider: Glen Mason Consult Discharge Plan - Plan [facility]errals: [facility] [Non-Partnered Physician] - 04/28/17 1:30 pm <Eric Delvalle - Last Filed: 04/24/17 18:52> Date of Encounter: 04/24/17 - Constitutional Vitals: Temp Pulse Resp BP Pulse Ox 99.1 F 79 18 119/86 93 04/24/17 16:02 04/24/17 16:02 04/24/17 16:12 04/24/17 16:02 04/24/17 16:12 Internal Medicine: Result - Labs CBC & Chem 7: 04/24/17 01:31 04/24/17 01:31 Labs: Short CBC 04/24/17 Range/Units 01:31 WBC 24.9 H (4.3-11.1) K/mcL Hgb 8.0 L D (12.9-16.9) g/dL Hct 24.1 L (37.5-50.1) % Plt Count 270 (140-400) K/mcL Neutrophils # 23.0 H (1.6-8.9) K/mcL BMP 04/24/17 01:31 Sodium 132 L Potassium 4.0 Chloride 102 Carbon Dioxide 23 BUN 18 Creatinine 0.92 Glucose 97 Calcium 8.0 L - ABG Interpretation ABG results: ABG ABG pH 7.46 pH Units (7.32-7.45) H 04/24/17 15:12 ABG pCO2 30 mmHg (35-45) L 04/24/17 15:12 ABG pO2 66 mmHg (85-104) L 04/24/17 15:12 ABG O2 Saturation 94 % (95-98) L 04/24/17 15:12 PT/INR, D-dimer PT 12.6 Seconds (9.4-12.1) H 04/23/17 04:24 - Impressions Impressions Chest X-Ray 04/24/17 13:13 IMPRESSION: Worsening airspace disease at the right lung base with new left basilar opacities. Findings could reflect worsening pneumonia, aspiration or possibly asymmetric edema. Increased retrocardiac opacities may reflect atelectasis although developing airspace disease is possible. D/ / Glen Mason / Glen Mason Interpreting Provider: Glen Mason - Attending Attestation I examined this patient and my medical decision-making was reviewed with the Resident Physician. I agree with the documented findings, disposition and treatment plan as described except to the extent set forth below.
--- NOTE | 2017-04-24 16:53 | Electrocardiograph Report ---
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
[2017-04-24] MEDS: Divalproex (24 HR) 500 MG TABLET PO SCH (21:44)
[2017-04-24] MEDS: Gabapentin 300 MG CAPSULE PO SCH (21:44)
[2017-04-24] MEDS: traZODone 50 MG TABLET PO SCH (21:44)
[2017-04-25] MEDS: Ipratropium/Albuterol Neb 3 ML IH SCH ×6 (00:19→20:39)
[2017-04-25] MEDS: Cefepime HCl 2,000 MG in Water for inj. (sterile) 20 ML 20 ML IVP SCH ×3 (02:34→17:00)
[2017-04-25 03:54] LABS: Basophils % 0.2 %; Eosinophils # 0.3 K/mcL (0.0-0.6); Eosinophils % 1.9 %; Hematocrit 25.9 % (37.5-50.1); Hemoglobin 8.5 g/dL (12.9-16.9); Immature Granulocytes % 0.6 % (0-4); Lymphocytes # 0.6 K/mcL (0.6-4.6); Lymphocytes % 3.6 %; Mean Corpuscular HGB Conc 32.8 g/dL (31.6-35.5); Mean Corpuscular Hemoglobin 30.1 pg (28.0-33.3); Mean Corpuscular Volume 91.8 fL (83.0-100.0); Monocytes # 1.2 K/mcL (0.0-1.3); Monocytes % 6.8 %; Neutrophils # 14.8 K/mcL (1.6-8.9); Nucleated Red Blood Cells 0.1 /100 WBC (0); Platelet Count 276 K/mcL (140-400); Red Blood Count 2.82 M/mcL (4.19-5.50); Segmented Neutrophils % 86.9 %
[2017-04-25 04:09] LABS: BUN/Creatinine Ratio 24 (6-26); Blood Urea Nitrogen 24 mg/dL (8-23); Calcium 8.1 mg/dL (8.6-10.3); Carbon Dioxide 23 mEq/L (23-29); Chloride 103 mEq/L (98-107); Glucose 93 mg/dL (70-105); Osmolality,Calculated 278 (280-300); Potassium 3.5 mEq/L (3.5-5.1); Sodium 132 mEq/L (136-145); eGFR For African Americans > 60 (> 60); eGFR For Non-African Americans > 60 (> 60)
[2017-04-25] MEDS: *HR* Heparin 5,000 UNIT/ML VIAL SQ SCH ×2 (05:30→17:00)
--- NOTE | 2017-04-25 07:36 | Internal Med Progress Note ---
<Dany Siddiqui - Last Filed: 04/25/17 17:39> Date of Encounter: 04/25/17 Time of Encounter: 08:20 - Assessment and plan (1) Pneumonia Current Visit: Yes Status: Acute Assessment and plan: Patient is currently on day 3 of Flagyl, vancomycin, and cefepime. Blood cultures, CSF cultures, an influenza swab are all negative. She is and aerosols when necessary. Patient is scheduled breathing treatments. WBC: 24.9 -> 17.0 Plan: Continue IV antibiotics Qualifiers: Pneumonia type: due to unspecified organism Laterality: right Lung location: lower lobe of lung Qualified Code(s): J18.1 - Lobar pneumonia, unspecified organism (2) Encephalopathy acute Current Visit: Yes Status: Acute Assessment and plan: Current to patient's visitors yesterday, patient is at baseline when alert. He states that he has lost his glasses and hearing aids. I attempted to consult with [place] today and was unsuccessful. 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: without fdc use Diabetes mellitus complication status: without complication Qualified Code(s): E11.9 - Type 2 diabetes mellitus without complications (4) SVT (supraventricular tachycardia) Current Visit: Yes Status: Acute Assessment and plan: Most likely secondary to pneumonia/infection - Lopressor 25 BID (5) DVT prophylaxis Current Visit: Yes Status: Acute Assessment and plan: Heparin SQ Q12H - Subjective Interval history: Patient is a 66-year-old male past medical history of atrial fibrillation, COPD , hyperlipidemia, HTN, depression, panic disorder, PTSD, and schizophrenia is admitted from the emergency department for pneumonia and altered mental status. The patient according to his chart was sent from the [facility] for the complaint of shortness of breath and chest pain. Throughout the patients stay has been intermittently agitated. Yesterday he appeared to have increased work of breathing in the morning and a repeat chest x-ray was ordered which showed what appeared to be worsening pneumonia vs pulmonary edema. IV Lasix was ordered and the patient improved throughout the day. - Constitutional Vitals: Temp Pulse Resp BP Pulse Ox 98.7 F 68 40 150/87 96 04/25/17 07:11 04/25/17 07:11 04/25/17 07:11 04/25/17 07:11 04/25/17 04:35 General appearance: Present: cachectic, A&O X 0, mild distress. Absent: cooperative Exam: Patient is more alert today and appears improved from yesterday. He is sitting up in bed and drinking water. He does appear very anxious and fidgety. While examining him the patient was in SVT with a heart rate of 170, 5 mg of metoprolol were administered and patient heart rate improved to the 90s and patient became less anxious. - Head Head exam: Present: atraumatic, normal inspection, normocephalic - Eye Eye exam: Present: normal appearance, PERRL - Neck Neck exam general surgery: Present: normal inspection - Respiratory Additional comments: Appears to be in mild respiratory distress. Oxygen saturation is 94% on 4 liters. Tachypnic. Rales in the right base. - Cardiovascular Cardiovascular exam: Present: RRR, +S1, +S2 - GI/Abdominal GI/Abdominal exam: Present: normal bowel sounds, soft, no peritoneal signs. Absent: tenderness - Extremities Exam Extremities exam: Present: normal inspection, warm - Back Exam Back exam: Present: normal inspection - Neurological Exam Neurological exam: Present: alert, oriented X3, no focal deficits - Psychiatric Psychiatric exam: Present: anxious, normal affect - Skin Skin exam: Present: intact, normal color Internal Medicine: Result - Labs CBC & Chem 7: 04/25/17 03:20 04/25/17 03:20 Labs: Short CBC 04/25/17 Range/Units 03:20 WBC 17.0 H (4.3-11.1) K/mcL Hgb 8.5 L (12.9-16.9) g/dL Hct 25.9 L (37.5-50.1) % Plt Count 276 (140-400) K/mcL Neutrophils # 14.8 H (1.6-8.9) K/mcL BMP 04/25/17 03:20 Sodium 132 L Potassium 3.5 Chloride 103 Carbon Dioxide 23 BUN 24 H Creatinine 1.00 Glucose 93 Calcium 8.1 L - ABG Interpretation ABG results: ABG ABG pH 7.46 pH Units (7.32-7.45) H 04/24/17 15:12 ABG pCO2 30 mmHg (35-45) L 04/24/17 15:12 ABG pO2 66 mmHg (85-104) L 04/24/17 15:12 ABG O2 Saturation 94 % (95-98) L 04/24/17 15:12 PT/INR, D-dimer PT 12.6 Seconds (9.4-12.1) H 04/23/17 04:24 - Impressions Impressions Chest X-Ray 04/24/17 13:13 IMPRESSION: Worsening airspace disease at the right lung base with new left basilar opacities. Findings could reflect worsening pneumonia, aspiration or possibly asymmetric edema. Increased retrocardiac opacities may reflect atelectasis although developing airspace disease is possible. D/ / Glen Mason / Glen Mason Interpreting Provider: Glen Mason Consult Discharge Plan - Plan [facility]errals: [facility] [Non-Partnered Physician] - 04/28/17 1:30 pm <Eric Delvalle - Last Filed: 04/25/17 17:43> Date of Encounter: 04/25/17 - Constitutional Vitals: Temp Pulse Resp BP Pulse Ox 97.9 F 64 30 137/57 96 04/25/17 15:00 04/25/17 11:29 04/25/17 16:01 04/25/17 15:30 04/25/17 16:01 Internal Medicine: Result - Labs CBC & Chem 7: 04/25/17 03:20 04/25/17 03:20 Labs: Short CBC 04/25/17 Range/Units 03:20 WBC 17.0 H (4.3-11.1) K/mcL Hgb 8.5 L (12.9-16.9) g/dL Hct 25.9 L (37.5-50.1) % Plt Count 276 (140-400) K/mcL Neutrophils # 14.8 H (1.6-8.9) K/mcL BMP 04/25/17 03:20 Sodium 132 L Potassium 3.5 Chloride 103 Carbon Dioxide 23 BUN 24 H Creatinine 1.00 Glucose 93 Calcium 8.1 L - ABG Interpretation ABG results: ABG ABG pH 7.46 pH Units (7.32-7.45) H 04/24/17 15:12 ABG pCO2 30 mmHg (35-45) L 04/24/17 15:12 ABG pO2 66 mmHg (85-104) L 04/24/17 15:12 ABG O2 Saturation 94 % (95-98) L 04/24/17 15:12 PT/INR, D-dimer PT 12.6 Seconds (9.4-12.1) H 04/23/17 04:24 - Attending Attestation I examined this patient and my medical decision-making was reviewed with the Resident Physician. I agree with the documented findings, disposition and treatment plan as described except to the extent set forth below.
[2017-04-25] MEDS: *HR* Metoprolol 5 MG/5 ML VIAL IVP PRN (08:05)
[2017-04-25] MEDS: Aspirin Enteric Coated 81 MG Tablet PO SCH (08:08)
[2017-04-25] MEDS: Gabapentin 100 MG CAPSULE PO SCH (08:08)
[2017-04-25] MEDS: cloNIDine HCl 0.1 MG TABLET PO SCH ×3 (08:08→20:53)
[2017-04-25] MEDS: Magnesium Oxide 400 MG TABLET PO SCH ×3 (08:08→20:53)
[2017-04-25] MEDS: Sennosides 8.6 MG TABLET PO SCH (08:09)
[2017-04-25] MEDS: Artificial Tears SOLN 15 ML BOTTLE BOTH EYES SCH ×3 (08:09→20:58)
[2017-04-25] MEDS: Venlafaxine XR (24 HR) 75 MG CAP.ER.24H PO SCH (08:09)
[2017-04-25] MEDS: risperiDONE 1 MG TABLET PO SCH ×2 (08:09→20:53)
[2017-04-25] MEDS: Diltiazem CD (24hr) 300 MG CAPSULE PO SCH (08:09)
[2017-04-25] MEDS: MetroNIDAZOLE 500 MG/100 ML 500 MG/100 ML BAG IVPB SCH ×3 (08:09→23:21)
[2017-04-25] MEDS: Budesonide/Formoterol 160/4.5 MDI IH SCH ×2 (11:51→20:39)
[2017-04-25] MEDS: Gabapentin 300 MG CAPSULE PO SCH (20:53)
[2017-04-25] MEDS: traZODone 50 MG TABLET PO SCH (20:53)
[2017-04-25] MEDS: Divalproex (24 HR) 500 MG TABLET PO SCH (20:54)
[2017-04-26] MEDS: Ipratropium/Albuterol Neb 3 ML IH SCH ×6 (00:20→20:39)
[2017-04-26] MEDS: *HR* LORazepam 2 MG/ML VIAL IVP PRN ×2 (00:25→11:43)
[2017-04-26] MEDS: Cefepime HCl 2,000 MG in Water for inj. (sterile) 20 ML 20 ML IVP SCH ×3 (03:00→17:17)
[2017-04-26] MEDS: *HR* Heparin 5,000 UNIT/ML VIAL SQ SCH ×2 (05:26→17:18)
[2017-04-26 06:56] LABS: Basophils % 0.2 %; Eosinophils # 0.2 K/mcL (0.0-0.6); Eosinophils % 1.6 %; Hematocrit 25.3 % (37.5-50.1); Hemoglobin 8.3 g/dL (12.9-16.9); Immature Granulocytes % 0.4 % (0-4); Lymphocytes # 0.9 K/mcL (0.6-4.6); Lymphocytes % 9.3 %; Mean Corpuscular HGB Conc 32.8 g/dL (31.6-35.5); Mean Corpuscular Hemoglobin 30.1 pg (28.0-33.3); Mean Corpuscular Volume 91.7 fL (83.0-100.0); Mean Platelet Volume 10.1 fL (9.4-12.4); Monocytes # 0.7 K/mcL (0.0-1.3); Monocytes % 7.3 %; Neutrophils # 8.2 K/mcL (1.6-8.9); Platelet Count 267 K/mcL (140-400); Red Blood Count 2.76 M/mcL (4.19-5.50); Red Cell Distribution Width 13.8 % (11.5-14.5); Segmented Neutrophils % 81.2 %
[2017-04-26 07:10] LABS: BUN/Creatinine Ratio 21 (6-26); Blood Urea Nitrogen 18 mg/dL (8-23); Calcium 8.1 mg/dL (8.6-10.3); Carbon Dioxide 24 mEq/L (23-29); Chloride 103 mEq/L (98-107); Glucose 115 mg/dL (70-105); Osmolality,Calculated 273 (280-300); Potassium 3.2 mEq/L (3.5-5.1); Sodium 130 mEq/L (136-145); eGFR For African Americans > 60 (> 60); eGFR For Non-African Americans > 60 (> 60)
--- NOTE | 2017-04-26 07:32 | Internal Med Progress Note ---
<Dany Siddiqui - Last Filed: 04/26/17 15:06> Date of Encounter: 04/26/17 Time of Encounter: 14:15 - Assessment and plan (1) Pneumonia Current Visit: Yes Status: Acute Assessment and plan: Patient is currently on day 4 of Flagyl, vancomycin, and day 3 of cefepime. Blood cultures, CSF cultures, an influenza swab are all negative. Patient is scheduled breathing treatments. Plan: Continue IV antibiotics Patient originates from an extended care facility through the [facility]. I believe that the patient is returning back to his baseline. Multiple family members and visitors associated that this is the patient's baseline. Anticipate that he can be discharged tomorrow. Qualifiers: Pneumonia type: due to unspecified organism Laterality: right Lung location: lower lobe of lung Qualified Code(s): J18.1 - Lobar pneumonia, unspecified organism (2) Encephalopathy acute Current Visit: Yes Status: Acute Assessment and plan: Current to patient's visitors yesterday, patient is at baseline when alert. He states that he has lost his glasses and hearing aids. Plan: - Agitation has improved. Patient appears to be at baseline. (3) SVT (supraventricular tachycardia) Current Visit: Yes Status: Acute Assessment and plan: Most likely secondary to pneumonia/infection. Patient had two episodes since admission one on morning after admission and 04/25/17 - Lopressor 25 BID (4) Type 2 diabetes mellitus Current Visit: Yes Status: Chronic Qualifiers: Diabetes mellitus residential insulin use: without marketing graphics specialist use Diabetes mellitus complication status: without complication Qualified Code(s): E11.9 - Type 2 diabetes mellitus without complications (5) DVT prophylaxis Current Visit: Yes Status: Acute Assessment and plan: Heparin SQ Q12H - Subjective Interval history: Patient is a 66-year-old male past medical history of atrial fibrillation, COPD , hyperlipidemia, HTN, depression, panic disorder, PTSD, and schizophrenia is admitted from the emergency department for pneumonia and altered mental status. The patient according to his chart was sent from the [facility] for the complaint of shortness of breath and chest pain. Throughout the patients stay has been intermittently agitated. Patient did have increased work of breathing in the beginning of treatment course and required one day of IV lasix, CXR showed pulmonary edema most likely from fluids received around admission. Today the patients white count is completely resolved. He appears to be improving and his breathing also appears improved I do believe that this patient does have a baseline tachypnea. This is especially obvious when the patient is resting in a deep slumber. The patient is sitting up throughout the day he does not appear to be breathing is heavily. - Constitutional Vitals: Temp Pulse Resp BP Pulse Ox 98.5 F 66 27 159/97 96 04/26/17 07:07 04/26/17 07:07 04/26/17 07:07 04/26/17 07:07 04/26/17 07:07 General appearance: Present: cachectic, A&O X 0, mild distress. Absent: cooperative - Head Head exam: Present: atraumatic, normal inspection, normocephalic - Eye Eye exam: Present: normal appearance, PERRL - Neck Neck exam general surgery: Present: normal inspection - Respiratory Respiratory exam: Present: rales (Right base). Absent: rhonchi, wheezes - Cardiovascular Cardiovascular exam: Present: RRR, +S1, +S2 - GI/Abdominal GI/Abdominal exam: Present: normal bowel sounds, soft, no peritoneal signs. Absent: tenderness - Extremities Exam Extremities exam: Present: normal inspection, warm. Absent: pedal edema, tenderness - Back Exam Back exam: Present: normal inspection - Neurological Exam Neurological exam: Present: alert, oriented X3, no focal deficits - Psychiatric Psychiatric exam: Present: normal affect, normal mood - Skin Skin exam: Present: intact, normal color, warm Internal Medicine: Result - Labs CBC & Chem 7: 04/26/17 06:19 04/26/17 06:19 Labs: BMP 04/26/17 06:19 Sodium 130 L Potassium 3.2 L Chloride 103 Carbon Dioxide 24 BUN 18 Creatinine 0.86 Glucose 115 H Calcium 8.1 L - ABG Interpretation ABG results: ABG ABG pH 7.46 pH Units (7.32-7.45) H 04/24/17 15:12 ABG pCO2 30 mmHg (35-45) L 04/24/17 15:12 ABG pO2 66 mmHg (85-104) L 04/24/17 15:12 ABG O2 Saturation 94 % (95-98) L 04/24/17 15:12 PT/INR, D-dimer PT 12.6 Seconds (9.4-12.1) H 04/23/17 04:24 Consult Discharge Plan - Plan [facility]errals: [facility] [Non-Partnered Physician] - 04/28/17 1:30 pm <Eric Delvalle - Last Filed: 04/26/17 18:39> Date of Encounter: 04/26/17 - Constitutional Vitals: Temp Pulse Resp BP Pulse Ox 97.8 F 62 36 138/94 96 04/26/17 16:18 04/26/17 16:18 04/26/17 16:33 04/26/17 16:18 04/26/17 16:33 Internal Medicine: Result - Labs CBC & Chem 7: 04/26/17 06:19 04/26/17 06:19 Labs: Short CBC 04/26/17 Range/Units 06:19 WBC 10.1 (4.3-11.1) K/mcL Hgb 8.3 L (12.9-16.9) g/dL Hct 25.3 L (37.5-50.1) % Plt Count 267 (140-400) K/mcL Neutrophils # 8.2 (1.6-8.9) K/mcL BMP 04/26/17 06:19 Sodium 130 L Potassium 3.2 L Chloride 103 Carbon Dioxide 24 BUN 18 Creatinine 0.86 Glucose 115 H Calcium 8.1 L - ABG Interpretation ABG results: ABG ABG pH 7.46 pH Units (7.32-7.45) H 04/24/17 15:12 ABG pCO2 30 mmHg (35-45) L 04/24/17 15:12 ABG pO2 66 mmHg (85-104) L 04/24/17 15:12 ABG O2 Saturation 94 % (95-98) L 04/24/17 15:12 PT/INR, D-dimer PT 12.6 Seconds (9.4-12.1) H 04/23/17 04:24 - Attending Attestation I examined this patient and my medical decision-making was reviewed with the Resident Physician. I agree with the documented findings, disposition and treatment plan as described except to the extent set forth below.
[2017-04-26] MEDS ORDERED: Potassium Chloride 40 MEQ, Lidocaine 1% 2 ML in D5% in Water 500 ML IVPB ONE (07:34)
[2017-04-26] MEDS: MetroNIDAZOLE 500 MG/100 ML 500 MG/100 ML BAG IVPB SCH ×2 (07:56→14:48)
[2017-04-26] MEDS: Potassium Chloride Elixir 20 MEQ/15 ML UDC PO SCH (07:56)
[2017-04-26] MEDS: Gabapentin 100 MG CAPSULE PO SCH (07:56)
[2017-04-26] MEDS: Aspirin Enteric Coated 81 MG Tablet PO SCH (07:57)
[2017-04-26] MEDS: Diltiazem CD (24hr) 300 MG CAPSULE PO SCH (07:57)
[2017-04-26] MEDS: Venlafaxine XR (24 HR) 75 MG CAP.ER.24H PO SCH (07:57)
[2017-04-26] MEDS: risperiDONE 1 MG TABLET PO SCH ×2 (07:58→20:02)
[2017-04-26] MEDS: Magnesium Oxide 400 MG TABLET PO SCH ×3 (07:58→20:03)
[2017-04-26] MEDS: Sennosides 8.6 MG TABLET PO SCH (07:58)
[2017-04-26] MEDS: cloNIDine HCl 0.1 MG TABLET PO SCH ×3 (07:58→20:02)
[2017-04-26] MEDS: Artificial Tears SOLN 15 ML BOTTLE BOTH EYES SCH ×3 (07:58→20:03)
[2017-04-26] MEDS: Budesonide/Formoterol 160/4.5 MDI IH SCH ×2 (08:21→20:39)
[2017-04-26 09:34] LABS: Magnesium 1.9 mg/dL (1.6-2.6)
[2017-04-26] MEDS: Acetaminophen 325 MG TABLET PO PRN (11:32)
[2017-04-26] MEDS ORDERED: Aminoglycoside Consult 1 EACH MC ONE (13:14)
[2017-04-26] MEDS: traZODone 50 MG TABLET PO SCH (20:02)
[2017-04-26] MEDS: Gabapentin 300 MG CAPSULE PO SCH (20:02)
[2017-04-26] MEDS: Divalproex (24 HR) 500 MG TABLET PO SCH (20:02)
[2017-04-27] MEDS: Ipratropium/Albuterol Neb 3 ML IH SCH ×4 (00:18→11:10)
[2017-04-27] MEDS: MetroNIDAZOLE 500 MG/100 ML 500 MG/100 ML BAG IVPB SCH ×2 (00:35→08:55)
[2017-04-27] MEDS: Cefepime HCl 2,000 MG in Water for inj. (sterile) 20 ML 20 ML IVP SCH ×2 (03:00→08:53)
[2017-04-27 04:03] LABS: BUN/Creatinine Ratio 16 (6-26); Blood Urea Nitrogen 12 mg/dL (8-23); Calcium 8.6 mg/dL (8.6-10.3); Carbon Dioxide 21 mEq/L (23-29); Chloride 104 mEq/L (98-107); Glucose 130 mg/dL (70-105); Osmolality,Calculated 272 (280-300); Potassium 3.6 mEq/L (3.5-5.1); Sodium 130 mEq/L (136-145); eGFR For African Americans > 60 (> 60); eGFR For Non-African Americans > 60 (> 60)
[2017-04-27] MEDS: *HR* LORazepam 2 MG/ML VIAL IVP PRN (04:14)
[2017-04-27] MEDS: *HR* Heparin 5,000 UNIT/ML VIAL SQ SCH (05:32)
[2017-04-27] MEDS: Budesonide/Formoterol 160/4.5 MDI IH SCH (07:31)
[2017-04-27] MEDS: risperiDONE 1 MG TABLET PO SCH (08:54)
[2017-04-27] MEDS: cloNIDine HCl 0.1 MG TABLET PO SCH (08:54)
[2017-04-27] MEDS: Diltiazem CD (24hr) 300 MG CAPSULE PO SCH (08:54)
[2017-04-27] MEDS: Venlafaxine XR (24 HR) 75 MG CAP.ER.24H PO SCH (08:54)
[2017-04-27] MEDS: Aspirin Enteric Coated 81 MG Tablet PO SCH (08:55)
[2017-04-27] MEDS: Gabapentin 100 MG CAPSULE PO SCH (08:55)
[2017-04-27] MEDS: Potassium Chloride Elixir 20 MEQ/15 ML UDC PO SCH (08:55)
[2017-04-27] MEDS: Sennosides 8.6 MG TABLET PO SCH (08:55)
[2017-04-27] MEDS: Magnesium Oxide 400 MG TABLET PO SCH (08:55)
--- NOTE | 2017-04-27 10:13 | Discharge Summary ---
<Johnnie Gipson - Last Filed: 04/27/17 10:10> - NOTES TO OUTPATIENT PROVIDER Notes to Outpatient Provider: Patient admitted for continued her pneumonia with encephalopathy. He was started on broad-spectrum antibiotics and treated for five days. His respiratory failure improved now requiring 3L O2 supplementation. Blood cultures have been negative. He was deescalated to cefdinir and flagyl, which he will need four additional days of. Encephalopathy has resolved. He will be transferred to [facility] to complete his antibiotics regimen. Date of Encounter: 04/27/17 Time of Encounter: 10:11 - Discharge Diagnosis (1) Severe sepsis Priority: Primary Status: Acute (2) Acute and chronic respiratory failure Priority: Secondary Status: Acute Qualifiers: Respiratory failure complication: hypoxia Qualified Code(s): J96.21 - Acute and chronic respiratory failure with hypoxia (3) Pneumonia Priority: Secondary Status: Acute Qualifiers: Pneumonia type: due to unspecified organism Laterality: right Lung location: lower lobe of lung Qualified Code(s): J18.1 - Lobar pneumonia, unspecified organism (4) Petechiae Priority: Secondary Status: Acute (5) Type 2 diabetes mellitus Priority: Secondary Status: Chronic Qualifiers: Diabetes mellitus assistant terminal manager insulin use: without residential use Diabetes mellitus complication status: without complication Qualified Code(s): E11.9 - Type 2 diabetes mellitus without complications (6) Encephalopathy acute Priority: Secondary Status: Acute (7) SVT (supraventricular tachycardia) Priority: Secondary Status: Acute (8) DVT prophylaxis Priority: Secondary Status: Acute Hospital course: Mr. Roberts is a 66 year old male resented from [facility] inpatient psychiatry unit to the [facility] emergency room. Patient's chief complaint was difficulty breathing and chest pain and noted to have abnormal rash. Patient was found to have profound leukocytosis and x-ray showed right lower lobe pneumonia. Patient had blood cultures drawn and placed on broad-spectrum antibiotics including vancomycin, cefepime, metronidazole. He also was noted to have particular rash on his legs. Patient had a lumbar puncture during the ER as he was encephalopathic, severe sepsis with petechial rash. And CSF analysis did not show any signs of infection. Patient was also placed on scheduled DuoNeb's and oxygen supplementation. Influenza swab was negative. Over the course of stay patient's leukocytosis, encephalopathy resolved. His oxygen requirements decreased to 3 L. Blood cultures were negative for growth. A patient's antibiotics were Descalated on day 5 to cefdinir and metronidazole PO. Patient also experienced an episode of SVT likely secondary to pneumonia and was given Lopressor. This morning patient is awake and alert 3. He is requiring 3 L of O2 supplementation (does not use O2 at home). He reports his shortness of breath has improved. Patient will be transferred back to [facility] for completion of his antibiotics. Discharge discussed with: patient - Time Spent with Patient Total time spent providing and/or coordinating discharge services: - Discharge Medications Prescriptions: Cefdinir [Omnicef] 300 mg PO BID #7 capsule metroNIDAZOLE [Flagyl] 500 mg PO TID #10 tablet Home Medications: Acetaminophen [Tylenol] 650 mg PO Q6H PRN 04/22/17 [History] Aspirin Enteric Coated [Aspirin EC] 162 mg PO DAILY 04/22/17 [History] Bethanechol Chloride [Urecholine] 10 mg PO TID 04/22/17 [History] Budesonide/Formoterol 160/4.5 [Symbicort 160/4.5] 2 puff IH BIDR 04/22/17 [ History] Calcium Citrate 400 mg PO DAILY 04/22/17 [History] Cholecalciferol (D-3) [Vitamin D] 3,000 unit PO DAILY 04/22/17 [History] Cyanocobalamin (Vitamin B-12) [Vitamin B12] 1,000 mcg PO BID 04/22/17 [History] Diltiazem HCl [Diltiazem 24Hr ER] 300 mg PO DAILY 04/22/17 [History] Divalproex (24 HR) [Depakote ER (24 HR)] 1,500 mg PO HS 04/22/17 [History] Docusate [Colace] 100 mg PO BID 04/22/17 [History] Gabapentin [Neurontin] 100 mg PO QAM 04/22/17 [History] Gabapentin [Neurontin] 300 mg PO HS 04/22/17 [History] Haloperidol Decanoate [Haldol Decanoate 100] 200 mg IM Q2W 04/22/17 [History] Ipratropium/Albuterol Neb [Duoneb] 3 ml IH Q4HR 04/22/17 [History] Losartan Potassium [Cozaar] 100 mg PO DAILY 04/22/17 [History] Magnesium Oxide [Mag-Ox] 400 mg PO TID 04/22/17 [History] Polyvinyl Alcohol [Artificial Tears] 2 drop BOTH EYES TID 04/22/17 [History] Propranolol [Inderal] 10 mg PO TID 04/22/17 [History] Sennosides [Senna] 8.6 mg PO DAILY 04/22/17 [History] Simethicone [Gas-X] 80 mg PO TIDAC 04/22/17 [History] Spironolactone [Aldactone] 25 mg PO DAILY 04/22/17 [History] Terazosin [Hytrin] 5 mg PO HS 04/22/17 [History] Tramadol HCl [Ultram] 50 mg PO TID 04/22/17 [History] Trazodone HCl 100 mg PO HS 04/22/17 [History] Venlafaxine HCl [Effexor Xr] 225 mg PO QAM 04/22/17 [History] cloNIDine HCl [CloNIDine HCl] 0.1 mg PO TID 04/22/17 [History] metFORMIN [Glucophage] 500 mg PO BIDWM 04/22/17 [History] risperiDONE [Risperidone] 4 mg PO BID 04/22/17 [History] Albuterol Neb [Proventil Neb] 2.5 mg IH Q2H PRN inhsol 04/27/17 [Rx] Cefdinir [Omnicef] 300 mg PO BID #7 capsule 04/27/17 [Rx] Ipratropium/Albuterol Neb [Duoneb] 3 ml IH [id number] inhsol 04/27/17 [Rx] metroNIDAZOLE [Flagyl] 500 mg PO TID #10 tablet 04/27/17 [Rx] Allergies/Adverse Reactions: 3 Allergy/AdvReac Type Severity Reaction Status Date / Time fluphenazine Allergy See Verified 04/22/17 22:38 Comments piperacillin [From Zosyn] AdvReac See Verified 04/22/17 22:38 Comments tazobactam [From Zosyn] AdvReac See Verified 04/22/17 22:38 Comments Date of admission: 04/23/17 00:04 Primary care physician: Homer Provider Consults: 04/23/17 04:15 Consult to Nutrition [CONS] Routine Comment: Consulting Provider: NUTRITION Reason for Dietary Consult: MST Score Consult to Campus Chaplain [CONS] Routine Reason for SW Consult: pt from inpatient Psych at [facility] 04/23/17 16:35 Consult to Nurse Navigator [CONS] Routine Comment: 04/26/17 16:20 Consult to Physical Therapy [CONS] Routine Comment: Evaluate, develop and implement POC Reason for Consult: Weakness. Possible placement 04/26/17 16:21 OT [Consult to Occupational Therapy] [CONS] Routine Comment: Evaluate, develop and implement POC Reason for Consult: weakness. possible placement Discharging clinician: Johnnie Gipson Anticipated date of discharge: 04/27/17 - Constitutional Vitals: Temp Pulse Resp BP Pulse Ox 98.3 F 63 20 180/102 97 04/27/17 07:48 04/27/17 07:48 04/27/17 07:48 04/27/17 07:48 04/27/17 07:48 General appearance: Present: cachectic, A&O X 0, mild distress. Absent: cooperative - Other Additional findings: General: Pleasant without distress HEENT: Head atraumatic, normocephalic, EOMI, PERRL, neck nontender to palpation , absent lymphadenopathy, Moist Mucous Membranes, absent teeth. Heart: Regular rate and rhythm with no murmur Lungs: Diffuse wheezing. Abdomen: Soft nontender, nondistended positive bowel sounds Skin: warm and dry Extremities: Absent pedal edema, Neuro: Cranial nerves II through XII intact, UE and LE sensation equal bilaterally, UE and LEstrength 5/5, alert oriented 3, Vascular: Pedal and radial pulses 2 out of 4 - Patient Status Disposition: Transfer [facility] Condition: Fair Functional capacity at discharge: independent ambulation Overall status at discharge: patient is progressing back to baseline - Discharge Instructions Follow Up With: [facility] [Non-Partnered Physician] - (PT IS GOING TO [facility] NO PCP APPOINTMENT) - Diet and Activity Activity: increase activity as tolerated Diet: diabetic diet, low fat, low cholesterol, low salt diet, other (Advanced soft diet chopped meat.) <Herb Humphreys - Last Filed: 04/27/17 13:30> Date of Encounter: 04/27/17 Hospital course: Mr. Roberts is a 66 year old male - Time Spent with Patient Total time spent providing and/or coordinating discharge services: Date of admission: 04/23/17 00:04 Primary care physician: Homer Provider Consults: 04/23/17 04:15 Consult to Nutrition [CONS] Routine Comment: Consulting Provider: NUTRITION Reason for Dietary Consult: MST Score Consult to Campus Chaplain [CONS] Routine Reason for SW Consult: pt from inpatient Psych at [facility] 04/23/17 16:35 Consult to Nurse Navigator [CONS] Routine Comment: 04/26/17 16:20 Consult to Physical Therapy [CONS] Routine Comment: Evaluate, develop and implement POC Reason for Consult: Weakness. Possible placement 04/26/17 16:21 OT [Consult to Occupational Therapy] [CONS] Routine Comment: Evaluate, develop and implement POC Reason for Consult: weakness. possible placement - Constitutional Vitals: Temp Pulse Resp BP Pulse Ox 97.9 F 62 22 159/95 97 04/27/17 11:49 04/27/17 11:49 04/27/17 11:49 04/27/17 11:49 04/27/17 11:49 - Attending Attestation Acute on chronic hypoxic respiratory failure secondary to sepsis due to gram- negative pneumonia, cover for anaerobes Time spent on this discharge 40 minutes, monitor sodium at the [facility] I examined this patient and my medical decision-making was reviewed with the Resident Physician. I agree with the documented findings, disposition and treatment plan as described except to the extent set forth below.
[2017-04-27] MEDS: Artificial Tears SOLN 15 ML BOTTLE BOTH EYES SCH (11:09)
--- NOTE | 2017-04-27 11:24 | Physician Discharge Referral ---
ExtendedCare Referral Info Transfer To: [facility] Provider in Charge: Yaneth Provider in Charge after Transfer: PCP Institutional Level of Care: Skilled - Diagnosis (1) Severe sepsis Priority: Primary Status: Acute (2) Acute and chronic respiratory failure Priority: Secondary Status: Acute (3) Pneumonia Priority: Secondary Status: Acute (4) Petechiae Priority: Secondary Status: Acute (5) Type 2 diabetes mellitus Priority: Secondary Status: Chronic (6) Encephalopathy acute Priority: Secondary Status: Acute (7) SVT (supraventricular tachycardia) Priority: Secondary Status: Acute (8) DVT prophylaxis Priority: Secondary Status: Acute Prognosis: Fair Aware of Diagnosis: Patient Aware of Prognosis: Patient - Transfer Medications Prescriptions: Cefdinir [Omnicef] 300 mg PO BID #7 capsule metroNIDAZOLE [Flagyl] 500 mg PO TID #10 tablet Home Medications: Acetaminophen [Tylenol] 650 mg PO Q6H PRN 04/22/17 [History] Aspirin Enteric Coated [Aspirin EC] 162 mg PO DAILY 04/22/17 [History] Bethanechol Chloride [Urecholine] 10 mg PO TID 04/22/17 [History] Budesonide/Formoterol 160/4.5 [Symbicort 160/4.5] 2 puff IH BIDR 04/22/17 [ History] Calcium Citrate 400 mg PO DAILY 04/22/17 [History] Cholecalciferol (D-3) [Vitamin D] 3,000 unit PO DAILY 04/22/17 [History] Cyanocobalamin (Vitamin B-12) [Vitamin B12] 1,000 mcg PO BID 04/22/17 [History] Diltiazem HCl [Diltiazem 24Hr ER] 300 mg PO DAILY 04/22/17 [History] Divalproex (24 HR) [Depakote ER (24 HR)] 1,500 mg PO HS 04/22/17 [History] Docusate [Colace] 100 mg PO BID 04/22/17 [History] Gabapentin [Neurontin] 100 mg PO QAM 04/22/17 [History] Gabapentin [Neurontin] 300 mg PO HS 04/22/17 [History] Haloperidol Decanoate [Haldol Decanoate 100] 200 mg IM Q2W 04/22/17 [History] Ipratropium/Albuterol Neb [Duoneb] 3 ml IH Q4HR 04/22/17 [History] Losartan Potassium [Cozaar] 100 mg PO DAILY 04/22/17 [History] Magnesium Oxide [Mag-Ox] 400 mg PO TID 04/22/17 [History] Polyvinyl Alcohol [Artificial Tears] 2 drop BOTH EYES TID 04/22/17 [History] Propranolol [Inderal] 10 mg PO TID 04/22/17 [History] Sennosides [Senna] 8.6 mg PO DAILY 04/22/17 [History] Simethicone [Gas-X] 80 mg PO TIDAC 04/22/17 [History] Spironolactone [Aldactone] 25 mg PO DAILY 04/22/17 [History] Terazosin [Hytrin] 5 mg PO HS 04/22/17 [History] Tramadol HCl [Ultram] 50 mg PO TID 04/22/17 [History] Trazodone HCl 100 mg PO HS 04/22/17 [History] Venlafaxine HCl [Effexor Xr] 225 mg PO QAM 04/22/17 [History] cloNIDine HCl [CloNIDine HCl] 0.1 mg PO TID 04/22/17 [History] metFORMIN [Glucophage] 500 mg PO BIDWM 04/22/17 [History] risperiDONE [Risperidone] 4 mg PO BID 04/22/17 [History] Albuterol Neb [Proventil Neb] 2.5 mg IH Q2H PRN inhsol 04/27/17 [Rx] Cefdinir [Omnicef] 300 mg PO BID #7 capsule 04/27/17 [Rx] Ipratropium/Albuterol Neb [Duoneb] 3 ml IH [id number] inhsol 04/27/17 [Rx] metroNIDAZOLE [Flagyl] 500 mg PO TID #10 tablet 04/27/17 [Rx] Allergies/Adverse Reactions: 3 Allergy/AdvReac Type Severity Reaction Status Date / Time fluphenazine Allergy See Verified 04/22/17 22:38 Comments piperacillin [From Zosyn] AdvReac See Verified 04/22/17 22:38 Comments tazobactam [From Zosyn] AdvReac See Verified 04/22/17 22:38 Comments - Respiratory Orders Oxygen / L per min (3L) Smoking Cessation: Smoking cessation has been advised. For more information, call the [place] Tobacco Quit Line at 2-037-SLHK-NOW. - Advance Directives Code Status: Full Code - Mobility Orders Ambulate (with assistance) - Diet Orders Cardiac (ADA diet. Advanced soft chopped meat.) CERTIFICATION: I certify that the transfer of the above named patient to an Extended Care Facility is necessary for the continuing treatment of the diagnosis listed. The above information is true and accurate reflection of patient's current condition. Confidential - Redisclosure prohibited without a patient's written consent.
[2017-04-27 11:52] VITALS: BP 159/95
[2017-04-27] MEDS ORDERED: metroNIDAZOLE 500 MG TABLET PO SCH (15:00)
[2017-04-27] MEDS ORDERED: Cefdinir 300 MG CAPSULE PO SCH (21:00)
--- NOTE | 2017-04-28 07:01 | Electrocardiograph Report ---
[address] [address] Test Date: 2017-04-25 Pat Name: Rufino Roberts Department: 110 Room: 2N09 Gender: M Manager Scientific: : [id number] Requested By: Jenni Delvalle Order Number: [id number] Reading MD: Tristen Landis MD Measurements Intervals [place] Rate: 134 P: -83 NC: 120 QRS: -74 QRSD: 102 T: 81 QT: 285 QTc: 364 Interpretive Statements LIKELY ATRIAL TACHYCARDIA Poor R wave progression LEFT ANTERIOR FASCICULAR BLOCK BASELINE ARTIFACT COMPLICATES ACCURATE INTERPRETATION BASELINE ARTIFACT, REPEAT EKG Electronically Signed On 04-28-2017 6:59:56 EDT by Tristen Landis MD
== END 2017-04-27 13:15 | DRG 871 ==
LOC: EMEROO 20:40 → 2NNU 04-23 00:04
PROVIDERS: ADMIT Internal Medicine; ATTEND Internal Medicine